=== PATIENT | female | born 1985 | race Two or more races ===

== ENCOUNTER 2020-01-20 12:15 | Inpatient (IN) | payer OTHER ==
[~2020-01-20] VITALS: Ht 167.6 cm; Wt 2.7 kg
[2020-02-03] MEDS ORDERED: IRON325 MG PO (09:38)
[2020-02-03] MEDS ORDERED: PRENATAL CAPLE1 EAC1 PO (09:38)
[2020-02-03] MEDS ORDERED: LEVOTHYROXINE25 MCG PO (09:39)
== END 2020-02-06 13:20 | disposition home or self-care (01) | DRG 788 ==
LOC: OB/GYN 01-31 12:15 → LDR 02-03 08:06 → OB/GYN 02-04 02:59
PROVIDERS: ADMIT Specialist; ATTEND Specialist
PROC: 10D00Z1 Extraction of Products of Conception, Low, Open Approach (ICD-10-PCS; principal; 2020-02-03)
PROC: 3E033VJ Introduction of Other Hormone into Peripheral Vein, Percutaneous Approach (ICD-10-PCS; 2020-02-03)
PROC: 3E0P7VZ Introduction of Hormone into Female Reproductive, Via Natural or Artificial Opening (ICD-10-PCS; 2020-02-03)
PROC: 10907ZC Drainage of Amniotic Fluid, Therapeutic from Products of Conception, Via Natural or Artificial Opening (ICD-10-PCS; 2020-02-03)
PROC: 4A1HXFZ Monitoring of Products of Conception, Cardiac Rhythm, External Approach (ICD-10-PCS; 2020-02-03)
DX: O33.9 Maternal care for disproportion, unspecified (principal); O61.9 Failed induction of labor, unspecified; Z3A.40 40 weeks gestation of pregnancy; Z37.0 Single live birth